=== PATIENT | male | born 1950 | race Caucasian/White ===

== ENCOUNTER 2016-12-31 14:31 | Emergency (ER) | payer MEDICARE, BC ==
[2016-12-31] MEDS ORDERED: NS 0.9% 1000 ML* 1,000 ML IV SCH (16:45)
[2016-12-31 17:24] LABS: Hematocrit 44 % (42-52); Hemoglobin 15.4 g/dl (14.0-18.0); Mean Corpuscular HGB Conc 35 g/dl (31-36); Mean Corpuscular Hemoglobin 31 pg (27-31); Mean Corpuscular Volume 90 fL (80-94); Mean Platelet Volume 9 um3 (7.4-10.4); Red Blood Count 4.93 10^6/ul (4.0-5.4); Red Cell Distribution Width 13 % (10.5-15); White Blood Count 9.3 10^3/ul (3.5-10.8)
[2016-12-31 17:39] LABS: ALT 29 U/L (7-52); AST 31 U/L (13-39); Albumin 4.4 g/dL (3.2-5.2); Alkaline Phosphatase 55 U/L (34-104); Anion Gap 7 mmol/L (2-11); BUN/Creatinine Ratio 31.1 (8-20); Blood Urea Nitrogen 28 mg/dL (6-24); CO2 Carbon Dioxide 28 mmol/L (22-32); Calcium 9.9 mg/dL (8.6-10.3); Chloride 100 mmol/L (101-111); Creatine Kinase 210 U/L (10-223); EGFR African American 108.6 (>60); EGFR Non-African American 84.4 (>60); Globulin 3.9 g/dL (2-4); Glucose 89 mg/dL (70-100); Lipase 37 U/L (11.0-82.0); Magnesium 2.2 mg/dL (1.9-2.7); Potassium 3.8 mmol/L (3.5-5.0); Sodium 135 mmol/L (133-145); Total Protein 8.3 g/dL (6.4-8.9)
[2016-12-31 18:04] VITALS: BP 140/82
[2016-12-31 18:04] LABS: Acetaminophen < 15 mcg/mL
[2016-12-31 18:17] LABS: Urine Bilirubin Negative (Negative); Urine Glucose Negative (Negative); Urine Nitrite Negative (Negative)
[2016-12-31 18:19] LABS: TSH (Thyroid Stimulating Horm) 2.53 mcIU/mL (0.34-5.60)
--- NOTE | 2016-12-31 18:31 | ED ---
Carmen Bunch Thomas, scribed for Wili Reeves MD on 12/31/16 at 1756 . Complex/Multi-Sys Presentation - HPI Summary HPI Summary: The pt is a 66 y/o M with a Hx of Parkinsons referred to the ED by his neurologist Dr. Ortiz. The patient has been experiencing hallucinations and confusion in the last few days. His neurologist refers him to the ED for evaluation by the on-call neurologist Dr. Dick. - History Of Current Complaint Chief Complaint: EDAltMentalStatus Time Seen by Provider: 12/31/16 16:45 Hx Obtained From: Patient, Family/Banquet Coordinator - is present Onset/Duration: Still Present Timing: Constant Aggravating Factor(s): None. Alleviating Factor(s): None. Associated Signs And Symptoms: Positive: Other - Hallucinations, confusion - Allergies/Home Medications Allergies/Adverse Reactions: Allergies Allergy/AdvReac Type Severity Reaction Status Date / Time Fish Allergy Allergy Itching Verified 12/04/16 14:35 PMH/Surg Hx/FS Hx/Imm Hx Previously Healthy: No Endocrine/Hematology History: Denies: Hx Diabetes Cardiovascular History: Denies: Hx Hypertension, Hx Pacemaker/ICD History: Denies: Hx Renal Disease Sensory History: Denies: Hx Hearing Aid Psychiatric History: Denies: Hx Panic Disorder - Surgical History Surgery Procedure, Year, and Place: CYST REMOVED FROM THYROID GLAND Infectious Disease History: No Infectious Disease History: Denies: Traveled Outside the [place] in Last 30 Days - Family History Known Family History: Positive: Other - When asked FHx, pt responds "nothing signifcant" - Social History Alcohol Use: None Substance Use Type: Reports: Prescribed Smoking Status (MU): Unknown if Ever Smoked Review of Systems Negative: Fever Neurological: Other - Confusion Psychological: Other - Halluicinations All Other Systems Reviewed And Are Negative: Yes Physical Exam - Summary Physical Exam Summary: General: well-appearing, no pain distress Skin: warm, color reflects adequate perfusion, dry Head: normal Eyes: EOMI, DIANDRA ENT: normal Neck: supple, nontender Respiratory: CTA, breath sounds present Cardiovascular: RRR Abdomen: soft, nontender Bowel: present Musculoskeletal: normal, strength/ROM intact Neurological: Typical parkinsonian movements. A&O x3 Psychological: affect/mood appropriate Triage Information Reviewed: Yes Vital Signs On Initial Exam: Initial Vitals Temp Pulse Resp BP Pulse Ox 97.8 F 81 18 152/86 99 12/31/16 14:34 12/31/16 14:34 12/31/16 14:34 12/31/16 14:34 12/31/16 14:34 Vital Signs Reviewed: Yes - Jarertt Coma Scale Coma Scale Total: 15 Diagnostics - Vital Signs Vital Signs Temp Pulse Resp BP Pulse Ox 12/31/16 17:00 154/87 12/31/16 16:48 84 99 12/31/16 16:47 152/84 12/31/16 16:11 97.8 F 76 18 146/88 98 12/31/16 14:34 97.8 F 81 18 152/86 99 - Laboratory Lab Results: Lab Results 12/31/16 12/31/16 12/31/16 Range/Units 17:10 17:10 17:10 WBC 9.3 (3.5-10.8) 10^3/ul RBC 4.93 (4.0-5.4) 10^6/ul Hgb 15.4 (14.0-18.0) g/dl Hct 44 (42-52) % MCV 90 (80-94) fL MCH 31 (27-31) pg MCHC 35 (31-36) g/dl RDW 13 (10.5-15) % Plt Count 244 (150-450) 10^3/ul MPV 9 (7.4-10.4) um3 Neut % (Auto) 66.0 (38-83) % Lymph % (Auto) 21.6 L (25-47) % Wirt % (Auto) 8.2 (1-9) % Eos % (Auto) 3.3 (0-6) % Baso % (Auto) 0.9 (0-2) % Absolute Neuts (auto) 6.1 (1.5-7.7) 10^3/ul Absolute Lymphs (auto) 2.0 (1.0-4.8) 10^3/ul Absolute Monos (auto) 0.8 (0-0.8) 10^3/ul Absolute Eos (auto) 0.3 (0-0.6) 10^3/ul Absolute Basos (auto) 0.1 (0-0.2) 10^3/ul Absolute Nucleated RBC 0.01 10^3/ul Nucleated RBC % 0.1 INR (Anticoag Therapy) 0.93 (0.89-1.11) APTT 28.8 (26.0-36.3) seconds Sodium 135 (133-145) mmol/L Potassium 3.8 (3.5-5.0) mmol/L Chloride 100 L (101-111) mmol/L Carbon Dioxide 28 (22-32) mmol/L Anion Gap 7 (2-11) mmol/L BUN 28 H (6-24) mg/dL Creatinine 0.90 (0.67-1.17) mg/dL Est GFR ( Amer) 108.6 (>60) Est GFR (Non-Af Amer) 84.4 (>60) BUN/Creatinine Ratio 31.1 H (8-20) Glucose 89 (70-100) mg/dL Lactic Acid (0.5-2.0) mmol/L Calcium 9.9 (8.6-10.3) mg/dL Magnesium 2.2 (1.9-2.7) mg/dL Total Bilirubin 0.70 (0.2-1.0) mg/dL AST 31 (13-39) U/L ALT 29 (7-52) U/L Alkaline Phosphatase 55 (34-104) U/L Total Creatine Kinase 210 (10-223) U/L CK-MB (CK-2) 9.6 H (0.6-6.3) ng/mL Troponin I 0.00 (<0.04) ng/mL C-Reactive Protein 1.90 (< 5.00) mg/L Total Protein 8.3 (6.4-8.9) g/dL Albumin 4.4 (3.2-5.2) g/dL Globulin 3.9 (2-4) g/dL Albumin/Globulin Ratio 1.1 (1-3) Lipase 37 (11.0-82.0) U/L TSH Pending Acetaminophen Pending 12/31/16 Range/Units 17:10 WBC (3.5-10.8) 10^3/ul RBC (4.0-5.4) 10^6/ul Hgb (14.0-18.0) g/dl Hct (42-52) % MCV (80-94) fL MCH (27-31) pg MCHC (31-36) g/dl RDW (10.5-15) % Plt Count (150-450) 10^3/ul MPV (7.4-10.4) um3 Neut % (Auto) (38-83) % Lymph % (Auto) (25-47) % Wirt % (Auto) (1-9) % Eos % (Auto) (0-6) % Baso % (Auto) (0-2) % Absolute Neuts (auto) (1.5-7.7) 10^3/ul Absolute Lymphs (auto) (1.0-4.8) 10^3/ul Absolute Monos (auto) (0-0.8) 10^3/ul Absolute Eos (auto) (0-0.6) 10^3/ul Absolute Basos (auto) (0-0.2) 10^3/ul Absolute Nucleated RBC 10^3/ul Nucleated RBC % INR (Anticoag Therapy) (0.89-1.11) APTT (26.0-36.3) seconds Sodium (133-145) mmol/L Potassium (3.5-5.0) mmol/L Chloride (101-111) mmol/L Carbon Dioxide (22-32) mmol/L Anion Gap (2-11) mmol/L BUN (6-24) mg/dL Creatinine (0.67-1.17) mg/dL Est GFR ( Amer) (>60) Est GFR (Non-Af Amer) (>60) BUN/Creatinine Ratio (8-20) Glucose (70-100) mg/dL Lactic Acid 1.0 (0.5-2.0) mmol/L Calcium (8.6-10.3) mg/dL Magnesium (1.9-2.7) mg/dL Total Bilirubin (0.2-1.0) mg/dL AST (13-39) U/L ALT (7-52) U/L Alkaline Phosphatase (34-104) U/L Total Creatine Kinase (10-223) U/L CK-MB (CK-2) (0.6-6.3) ng/mL Troponin I (<0.04) ng/mL C-Reactive Protein (< 5.00) mg/L Total Protein (6.4-8.9) g/dL Albumin (3.2-5.2) g/dL Globulin (2-4) g/dL Albumin/Globulin Ratio (1-3) Lipase (11.0-82.0) U/L TSH Acetaminophen Result Diagrams: 12/31/16 17:10 12/31/16 17:10 Lab Statement: Any lab studies that have been ordered have been reviewed, and results considered in the medical decision making process. Complex Multi-Symp Course/Dx Course Of Treatment: Medications reviewed. Allergies reviewed. BP elevated and patient advised to follow up with primary care. DR DICK SAW PATIENT IN ED. HE RECOMMENDED DECREASING THE SEROQEL TO 25MG ONLY AT NIGHT. HE SENT A SCRIPT FOR EXELON (RIVASTIGMINE) PATCH TO BE STARTED TOMORROW. F/U WITH DR ORTIZ. - Diagnoses Provider Diagnoses: Hallucinations - Physician Notifications Discussed Care Of Patient With: Rancho Dick Time Discussed With Above Provider: 17:00 Instructed by Provider To: Other - Dr. Dick, neurology, came to the ED to assess the patient. Discharge - Discharge Plan Condition: Stable Disposition: HOME Patient Education Materials: Hallucinations (ED) Referrals: Baljit Camilo MD [Primary Care Provider] - Additional Instructions: FOLLOW UP WITH NEUROLOGY. DECREASE THE SEROQUEL TO 25MG ONLY AT NIGHT. START THE EXELON (RIVASTIGMINE) PATCH TOMORROW. RETURN TO THE EMERGENCY DEPARTMENT FOR ANY WORSENING OF YOUR CONDITION OR QUESTIONS OR CONCERNS. The documentation as recorded by the Carmen gray Thomas accurately reflects the service I personally performed and the decisions made by me, Wili Reeves MD.
--- NOTE | 2017-01-01 01:32 | CONS ---
CC: Dr. Natividad Herrera * NEUROLOGY CONSULTATION: DATE OF CONSULT: 12/31/16 - EMERGENCY DEPT LOCATION: He is in emergency room bed 9. REFERRING PHYSICIAN: Dr. Wili Reeves. CHIEF COMPLAINT: Hallucinations, parkinsonism. HISTORY OF PRESENT ILLNESS: Carlos is a 66-year-old man followed by Dr. 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 For at least a year or two, he has had visual hallucinations and looking back in the records it might be longer than that. He has had some cognitive decline as early as when he retired 10 years ago, but that has progressed somewhat. Hallucinations have become particularly problematic over the last several months. He used to get them mainly at night, but over the last half a year or less he is getting them almost every day. At times, he cannot tell if they are real or not. They never speak to him. Sometimes he thinks he sees his when she is not there, but most of the time it is people or men. Sometimes he feels he needs to call the police, in that they are threatening. He has not had any injuries related to it. He has had parkinsonism which was thought to be atypical, as he has not had much tremor. It has mainly been a more of a bradykinetic rigid process. He has been on Azilect for quite some time and apparently was on Sinemet briefly years ago and did not feel that it helped. He has difficulty sleeping at night and also has dream enactment behaviors, which have been going on for at least a year or two according to his . Sometimes he will even fall out of bed. He would thrash and yell in his sleep. He was put on Requip, I believe started a couple of years ago at bedtime and that seemed to help his sleep, I am not entirely sure, but I believe his mobility might have been better as well. Because of worsening hallucinations, his Azilect was tapered off over the last two months or so. Hallucinations did not improve and so Requip was gradually tapered down until he was off of that completely within the last couple of weeks. Hallucinations continued and his mobility declined, particularly from his 's perspective. He would shuffle and freeze and he would be more bent over in his posture. His sleep deteriorated as well and he has not slept much at all at night. He has episodes where he will be unresponsive and extremely confused for hours at a time or sometimes it will seem like all day. At other times, he seems much more clear mentally and functional, usually this will last more than a day. He was started on Seroquel 12.5 mg at bedtime in the last couple of weeks. It was gradually increased to the current dose of 25 mg twice per day, but hallucinations did not seem better and his mobility seems to have further declined from his 's perspective. He had a number of laboratory studies as an outpatient just on 12/27/16, notable for a normal chemistry profile other than a BUN of 25, glucose of 129 at 2 in the afternoon. Otherwise normal chemistry profile. He had a urinalysis notable for hematuria on the same date with trace ketones and trace leukocyte esterase, but no bacteria, and trace white blood cells. He has not any dysuria, fever, or intestinal problems. There has been no history of seizures, head trauma. There is a family history of leg jerks during sleep, but no family history of parkinsonism or dementia. The exception is that both of his parents were alcoholic and became debilitated and so it is hard to tell if they that is from alcohol or there was some other process going on. PAST MEDICAL HISTORY: Otherwise notable for good health. There is no history of stroke, hypertension, heart disease, or diabetes. FAMILY HISTORY: Notable for alcoholism in his parents, but no history of dementia or parkinsonism that we can verify. REVIEW OF SYSTEMS: Notable for stable weight and no gastrointestinal complaints. He has noted double vision for about a month and that caused his to tell him that he need to stop driving and he has not driven for about 3 weeks. He describes his double vision oddly as though there are two cars where one is trying to pass the other. He has had a couple of falls and has been unsteady, but he has not injured himself. He denies nausea or abdominal pain. He denies constipation. He has not had any problems swallowing or choking spells. He has not had any fainting. He does not get lightheaded. He has urinary incontinence at times and nocturia about three times at night. PHYSICAL EXAM: General: He is a thin gentleman with dry seborrheic skin and he looks well hydrated. Vital Signs: Temperature 97.8 by temporal scan, blood pressure 150/80, heart rate is about 80 and regular, respiratory rate is 18 and oxygen saturation is 98% on room air. Lungs are clear bilaterally. Heart is in a regular rate and rhythm without murmurs. Carotid pulses are present and there are no cervical bruits. Oral mucosa is moist. Neurological exam: Pupils react equally from 3 to 2 mm. Eye movements are a little choppy, but full. There is no nystagmus and he does not experience diplopia. He has grade 3 to 4 hypomimia with symmetrical facial movement. He has good eye closure strength. Speech is quite hypophonic and at times a little bit dysarthric, but generally intelligible. Palate and tongue appear normal and tongue protrudes in the midline. He is a little hard of hearing. There is no head tremor. Motor exam reveals diffuse cogwheel rigidity which is pretty symmetric, perhaps a bit worse on the right. He has good strength in his limbs proximally and distally, but slow recruitment of motor strength. There is a very mild irregular rest tremor in the hands at times. There is no asterixis or myoclonus. Finger to nose maneuver is slow, but accurate bilaterally. Finger taps are also slow and a little bit worse on the left than the right. Rapid alternating maneuvers in the hands are very slow and he has difficulty understanding directions. Reflexes are hypoactive in the upper extremities and knees and absent at the ankles. Plantar responses are flexor bilaterally. He has marked bradykinesia. He is alert and oriented and able to provide a reasonably good history. He loses his train of thought pretty easily. Language is fluent. LABORATORY DATA: Additional laboratory data includes an MRI of the brain from 12/04/16, which I reviewed and which is interrupted as normal. I do not see any signs of progressive supranuclear palsy, lobar atrophy, or stigmata of multiple system atrophy. IMPRESSION: He probably has diffuse Lewy body disease. He had early cognitive changes and hallucinations and basically an akinetic rigid form a Parkinson disease. He has spontaneous fluctuations from day to day in his ability to function. His motor symptoms have worsened according to his with recent changes in his medications probably from decreasing and stopping his ropinirole , but possibly also from the addition of Seroquel. Treatment for hallucinations in diffuse Lewy body disease is very difficult. I would recommend starting rivastigmine patch 4.6 mg per day and titrating upward according to the recommended guidelines. Recommended cutting Seroquel back to 25 mg at bedtime, as I am afraid if we try to increase it, his motor symptoms will worsen and his fall risk will increase. He might benefit from Nuplazid if hallucination did not improve with addition of rivastigmine. If hallucinations do improve and his motor symptoms remain problematic, then it might be worth rechallenging with carbidopa/levodopa as it has been years since he has been on it. I will discuss my impression with Dr. Herrera. I have also discussed my impression with the patient, his , and Dr. Reeves. [id number]/[facility] #: [id number] MTDD
== END 2016-12-31 18:54 | disposition home or self-care (01) ==
LOC: ED 14:31
DX: R44.3 Hallucinations, unspecified (principal); R41.0 Disorientation, unspecified
CPT/HCPCS: 36415; 80053; 80329; 81003; 82140; 82550; 82553; 83605; 83690; 83735; 84443; 84484; 85025; 85610; 85730; 86140; 96360; 99282; G0480

== ENCOUNTER 2019-02-01 12:38 | Observation (INO) | payer MEDICARE, BC ==
[2019-02-01] MEDS ORDERED: NS 0.9% 1000 ML** 2,000 ML IV ONE (12:57)
--- NOTE | 2019-02-01 13:06 | ED ---
Complex/Multi-Sys Presentation - HPI Summary HPI Summary: Patient is a 68 y/o M presenting to the ED via EMS for a chief complaint of hypothermia. Patient is present with his . Patient was reported missing by the patient's the morning of 02/01/19 after the patient wandered out of the house on his own. Patient's states that the patient was found near a shed and walked out of the house while his was asleep. Patient [place] [address] and does not have any alarms on the doors of the house. Patient's denies a similar episode occurring in the past. Patient was found by EMS in a field about 1/4 mile from his house wearing pajama pants and Crocs with socks. Per EMS, patient was not alert, had abrasions on the bilateral UE and bilateral LE, and frostbite in the bilateral UE, bilateral LE, and face. His tympanic core temperature was 89.9 F and his rectal temperature taken 20 minutes after the tympanic core temperature was 92 F. Patient's initial oxygen saturation was 89% and after being given 2L of oxygen, oxygen saturation was 93% . Patient reports low back pain, but denies headache, shortness of breath, or chest pain. PMHx is significant for dementia and Parkinson's disease for which he takes 2 medications. Per patient's , patient has a history of hallucinations and confusion. Allergies noted. HPI LIMITED DUE TO LEVEL 5 CAVEAT - DEMENTIA - History Of Current Complaint Hx Obtained From: Patient, Family/Check Cashier - , EMS Hx From Patient Unobtainable Due To: Dementia Onset/Duration: Sudden Onset, Still Present Timing: Constant Severity Currently: Moderate Severity Initially: Moderate Associated Signs And Symptoms: Positive: Back Pain - Low - Allergies/Home Medications Allergies/Adverse Reactions: Allergies Allergy/AdvReac Type Severity Reaction Status Date / Time Fish Containing Products Allergy Itching Verified 05/12/18 12:37 Home Medications: Home Medications Pimavanserin Tartrate [Nuplazid] 1 tab PO DAILY 02/01/19 [History Confirmed 03/22] PMH/Surg Hx/FS Hx/Imm Hx Previously Healthy: No - LIMITED DUE TO LEVEL 5 CAVEAT - DEMENTIA Endocrine/Hematology History: Denies: Hx Diabetes Cardiovascular History: Denies: Hx Hypertension, Hx Pacemaker/ICD History: Denies: Hx Renal Disease Sensory History: Denies: Hx Hearing Aid Psychiatric History: Denies: Hx Panic Disorder - Surgical History Surgery Procedure, Year, and Place: CYST REMOVED FROM THYROID GLAND Infectious Disease History: Denies: Traveled Outside the [place] in Last 30 Days - Family History Known Family History: Positive: Other - When asked FHx, pt responds "nothing signifcant" - Social History Alcohol Use: None Substance Use Type: Reports: Prescribed Smoking Status (MU): Unknown if Ever Smoked Review of Systems - ROS Summary Review of Systems Summary: ROS LIMITED DUE TO LEVEL 5 CAVEAT - DEMENTIA. Positive: Other - Positive hypothermia Negative: Chest Pain Negative: Shortness Of Breath Positive: Myalgia - Low back pain Positive: Other - Positive abrasions on the bilateral UE and LE, frostbite to the bilateral UE, LE, and face Negative: Headache All Other Systems Reviewed And Are Negative: No Physical Exam - Summary Physical Exam Summary: PHYSICAL EXAM LIMITED DUE TO LEVEL 5 CAVEAT - DEMENTIA. Constitutional: Well-developed, Well-nourished, Alert.(-) Distressed Skin: Warm, Dry HENT: Normocephalic; Atraumatic Eyes: Conjunctiva normal Neck: Musculoskeletal ROM normal neck. (-) JVD, (-) Stridor, (-) Tracheal deviation Cardio: Rhythm regular, rate normal, Heart sounds normal; Intact distal pulses; The pedal pulses are 2+ and symmetric. Radial pulses are 2+ and symmetric. (-) Murmur Pulmonary/Chest wall: Effort normal. (-) Respiratory distress, (-) Wheezes, (-) Rales Abd: Soft, (-) tenderness, (-) Distension, (-) Guarding, (-) Rebound Musculoskeletal: (-) Edema. Numerous abrasions on the bilateral hands, feet, and ankles. Feet and ankles are cold to the touch, hyperemic, and erythematous. Capillary refill is less than 2 seconds. Lymph: (-) Cervical adenopathy Neuro: Alert, Oriented x3 Psych: Mood and affect Normal Triage Information Reviewed: Yes Vital Signs Reviewed: Yes Completion Of Physical Exam Limited Due To: Dementia, Level 5 - Lowman Coma Scale Best Eye Response: 3 - To Speech Best Motor Response: 6 - Obeys Commands Best Verbal Response: 5 - Oriented Coma Scale Total: 14 Procedures - Sedation Patient Received Moderate/Deep Sedation with Procedure: No Diagnostics - Laboratory Result Diagrams: 02/01/19 12:50 02/01/19 12:50 Lab Statement: Any lab studies that have been ordered have been reviewed, and results considered in the medical decision making process. - Radiology Lumbosacral X-ray Summary of Radiographic Findings: Lumbosacral X-ray not completed by time of admission. Reviewed by Dr. Wiley. Chest X-ray Radiology Interpretation Completed By: Radiologist Summary of Radiographic Findings: Chest X-ray IMPRESSION: 1. Hypoinflated lungs with no focal airspace opacification. 2. Prominence of the mediastinal structures may be related to technique. Reviewed by Dr. Wiley. - CT Brain CT CT Interpretation Completed By: Radiologist Summary of CT Findings: Brain CT IMPRESSION: 1. No acute intracranial abnormality by CT. Reviewed by Dr. Wiley. Complex Multi-Symp Course/Dx Course Of Treatment: LIMITED DUE TO LEVEL 5 CAVEAT - DEMENTIA. Patient is a 68 y/o M presenting to the ED via EMS for a chief complaint of hypothermia. Patient is present with his . Patient was reported missing by the patient's the morning of 02/01/19 after the patient wandered out of the house on his own. Patient's states that the patient was found near a shed and walked out of the house while his was asleep. Patient [place] [address] and does not have any alarms on the doors of the house. Patient's denies a similar episode occurring in the past. Patient was found by EMS in a field about 1/4 mile from his house wearing pajama pants and Crocs with socks. Per EMS , patient was not alert, had abrasions on the bilateral UE and bilateral LE, and frostbite in the bilateral UE, bilateral LE, and face. His tympanic core temperature was 89.9 F and his rectal temperature taken 20 minutes after the tympanic core temperature was 92 F. Patient's initial oxygen saturation was 89% and after being given 2L of oxygen, oxygen saturation was 93%. Patient reports low back pain, but denies headache, shortness of breath, or chest pain. PMHx is significant for dementia and Parkinson's disease for which he takes 2 medications. Per patient's , patient has a history of hallucinations and confusion. Allergies noted. On exam, numerous abrasions on the bilateral hands , feet, and ankles. Feet and ankles are cold to the touch, hyperemic, and erythematous. Capillary refill is less than 2 seconds. In the ED course, patient was given fluids. Laboratory abnormal findings: WBC 15.6, absolute neuts 14.1, absolute lymphs 0.6., anion gap 12, BUN 35, BUN/Creatinine ratio 37.2, glucose 116, lactic acid 3.6, total creatine kinase 249, urine blood 1+, urine ascorbic acid present. Brain CT IMPRESSION: 1. No acute intracranial abnormality by CT. Chest X-ray IMPRESSION: 1. Hypoinflated lungs with no focal airspace opacification. 2. Prominence of the mediastinal structures may be related to technique. Lumbosacral X-ray not completed by time of admission. At 14:08, Dr. Sosa agrees to admit the patient to [facility] with a diagnosis of moderate hypothermia. Patient will be admitted to [facility] with a diagnosis of moderate hypothermia. - Diagnoses Provider Diagnoses: Hypothermia - Physician Notifications Discussed Care Of Patient With: Hermann - At 14:08, Dr. Sosa agrees to admit the patient to [facility] with a diagnosis of moderate hypothermia. Time Discussed With Above Provider: 14:08 Instructed by Provider To: Admit As Observation Discharge ED - Sign-Out/Discharge Documenting (check all that apply): Patient Departure - Admit All imaging exams completed and their final reports reviewed: No - Discharge Plan Condition: Stable Disposition: ADMITTED TO [facility] - Attestation Statements Document Initiated by Scribe: Yes Documenting Scribe: Alexus Mercado Provider For Whom Scribe is Documenting (Include Credential): Bucky Wiley MD Scribe Attestation: Alexus Bunch, scribed for Bucky Wiley MD on 02/01/19 at 9006. Status of Scribe Document: Ready
[2019-02-01 13:10] LABS: ABS Basophils 0.1 10^3/ul (0-0.2); ABS Lymphocytes 0.6 10^3/ul (1.0-4.8); ABS Monocytes 0.8 10^3/ul (0-0.8); ABS Neutrophils 14.1 10^3/ul (1.5-7.7); Eosinophil % 0.2 %; Hematocrit 42 % (42-52); Hemoglobin 14.2 g/dL (14.0-18.0); Lymphocyte % 4.1 %; Mean Corpuscular HGB Conc 34 g/dL (31-36); Mean Corpuscular Hemoglobin 31 pg (27-31); Mean Corpuscular Volume 91 fL (80-94); Mean Platelet Volume 8.5 fL (7.4-10.4); Nucleated Red Blood Cells % 0.1; Platelet Count 231 10^3/uL (150-450); Red Blood Count 4.66 10^6 /uL (4.18-5.48); Red Cell Distribution Width 14 % (10-15); White Blood Count 15.6 10^3/uL (3.5-10.8)
[2019-02-01 13:12] LABS: Urine Appearance Cloudy; Urine Bilirubin Negative (Negative); Urine Blood 1+ (Negative); Urine Color Yellow; Urine Glucose Negative (Negative); Urine Ketones Negative (Negative); Urine Nitrite Negative (Negative); Urine Protein Negative (Negative); Urine Specific Gravity 1.025 (1.010-1.030); Urine Urobilinogen Negative (Negative)
[2019-02-01 13:14] LABS: Activated Partial Thrombo Time 29.1 seconds (26.0-38.0); INR 1.01 (0.82-1.09)
[2019-02-01 13:16] LABS: Urine Bacteria Absent (Absent); Urine Red Blood Cell Absent (Absent); Urine White Blood Cell Trace(0-5/hpf) (Absent)
[2019-02-01 13:18] LABS: Albumin 4.3 g/dL (3.2-5.2); Albumin/Globulin Ratio 1.1 (1-3); BUN/Creatinine Ratio 37.2 (8-20); Calcium 9.6 mg/dL (8.6-10.3); EGFR African American 96.6 (>60); EGFR Non-African American 79.8 (>60); Globulin 3.8 g/dL (2-4); Total Bilirubin 0.4 mg/dL (0.2-1.0); Total Protein 8.1 g/dL (6.4-8.9)
[2019-02-01 13:20] LABS: Troponin I 0.02 ng/mL (<0.03)
[2019-02-01] MEDS ORDERED: Ondansetron INJ* 2 MG/ML VIAL IV PRN (15:03)
[2019-02-01] MEDS ORDERED: Acetaminophen TAB* 325 MG PO PRN (15:03)
[2019-02-01] MEDS ORDERED: NS 0.9% 1000 ML** 1,000 ML IV SCH (15:15)
[2019-02-01] MEDS: Enoxaparin(*) 40 MG/0.4 ML SYR SUBCUT SCH (17:26)
[2019-02-01] MEDS: CMC:Rivastigmine PATCH 9.5 MG(NF) PATCH TRANSDERM SCH (17:30)
--- NOTE | 2019-02-01 17:41 | HP ---
CC: Dr. Dora Nye; Dr. Brent Lorenz * ADMISSION HISTORY AND PHYSICAL: DATE OF ADMISSION: 02/01/19 PRIMARY CARE PROVIDER: Dr. Dora Nye. MY ATTENDING WHILE IN THE HOSPITAL: Dr. Marina Rodrigues.* (DICTATED BY ROMEL MONTES) OUTPATIENT NEUROLOGIST: Dr. Brent Lorenz. CHIEF COMPLAINT: Cold exposure. HISTORY OF PRESENT ILLNESS: Mr. Roman is a 68-year-old male with past medical history significant for Parkinson disease complicated by dementia and severe visual hallucinations, who presents to the emergency department after being in his normal state of health up until this morning when he woke up prior to his and left the house before anabel for reasons he cannot quite understand and walked for approximately a quarter of a mile wearing pajama pants and open-toed footwear sustaining several scrapes along the way. The patient did not lose consciousness. The patient did not fall to his knowledge. The patient denied any recent changes in his meds except for the addition of Nuplazid approximately 1 month ago. The patient's thinks that this may have worsened his confusion and has not significantly changed his visual hallucinations; however, the patient does think that he feels sharper while on the Nuplazid. The patient had a followup tomorrow with his neurologist to discuss the continuation of this medication. The patient briefly took temazepam for sleep, but has not been taking this recently. The patient prior to admission denies fevers, chills, nausea, vomiting, abdominal pain, or diarrhea. The patient also denies dysuria, urinary frequency, passing out, palpitations, chest pain, or shortness of breath. The patient did receive his flu shot and his pneumonia vaccination. The patient in the emergency department notes some pain to his upper extremities, but no burning pain in his distal extremities or numbness or tingling. The patient denies any chest pain, shortness of breath, or any other pain. The patient was found in the field to have a core temperature of 92 degrees Fahrenheit and his oxygen saturation was initially 89%, which improved on 2 L of oxygen. In the emergency department, the patient was warmed. The patient had adequate mental status. The patient was found to have an elevated lactic acid, a slightly elevated CK, and elevated white blood cell count with neutrophilia, otherwise benign lab work and the patient was recommended to be admitted to the hospital due to these findings. PAST MEDICAL HISTORY: Parkinson disease, dementia, restless legs syndrome, depression, visual hallucinations. PAST SURGICAL HISTORY: Biker nodule removal. MEDICATIONS: 1. Ropinirole 1 mg p.o. t.i.d. 2. Rasagiline 1 mg p.o. daily. 3. Rivastigmine 9.5 mg 1 patch transdermal q.24 hours. 4. Vitamin B12 1000 mcg p.o. daily. 5. Multivitamin 1 tab p.o. daily. 6. Glycopyrrolate 2 mg p.o. t.i.d. 7. Pimavanserin (Nuplazid) 34 mg 1 tab p.o. daily. ALLERGIES: FISH. FAMILY HISTORY: The patient's father had alcohol abuse and of a suicide. The patient's mother of alcohol related complications. The patient has 2 healthy siblings. SOCIAL HISTORY: The patient has never smoked tobacco. The patient has never drank alcohol and the patient used marijuana in college. 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 [place] who is his primary caregiver and he has 1 adult daughter. REVIEW OF SYSTEMS: A 10-point review of systems was reviewed and is negative except as above in the HPI. PHYSICAL EXAMINATION GENERAL: The patient is a 68-year-old male, who appears stated age and sitting comfortably in bed, in no acute distress. VITAL SIGNS: Temperature 96.1 via [place] probe, pulse rate 88, respiratory rate 15, oxygen saturation 95% on FiO2 of 21%, blood pressure 114/70. HEENT: Head: Normocephalic, atraumatic. Sclerae anicteric. No conjunctival injection. Nasal mucosa moist. Oral mucosa moist. No pharyngeal erythema, discharge, or exudate. NECK: Supple, nontender. No lymphadenopathy. No carotid bruits auscultated. No JVD. RESPIRATORY: Clear to auscultation bilaterally. No wheezes, rales, or rhonchi. Good air exchange bilaterally. CARDIAC: Regular rate and rhythm. No clicks, murmurs, gallops, or rubs. Pulses are 2+ in the bilateral dorsalis pedis, posterior tibialis, and radial areas. ABDOMEN: Soft, nontender, nondistended. Bowel sounds present and normoactive in all 4 quadrants. No hepatosplenomegaly. No abdominal bruits auscultated. No hepatojugular reflux. GENITOURINARY: No suprapubic or CVA tenderness. NEURO: Cranial nerves II through XII intact. Alert and oriented to time, place , and self. Bradykinesia. Shivering. SKIN: Clean, dry, and intact. No rash. Distal hands and feet are red, warm to the touch, slightly edematous. No areas of blistering, pallor, or cyanosis. DIAGNOSTIC STUDIES/LAB DATA: White blood cell count 15.6, hemoglobin 14.2, platelet count 231. INR 1.01, APTT 29.1. Sodium 139, potassium 4.0, chloride 104, carbon dioxide 23, anion gap 12, BUN 35, creatinine 0.94, glucose 116, lactic acid 3.6, calcium 9.6. Bilirubin 0.4, AST 31, ALT 40, alkaline phosphatase 62. CK 249 and troponin I 0.02. Protein 8.1, albumin 4.2, globulin 3.8. Urine: Yellow, cloudy, 1+ blood, positive ascorbic acid, otherwise unremarkable. Studies: Brain CT read as no acute intracranial abnormality. Chest x-ray read as hypoinflation, prominent mediastinal markings. ASSESSMENT AND PLAN: Impression: Mr. Roman is a 68-year-old male with past medical history significant for Parkinson disease with dementia and visual hallucinations, who was found to be wandering out in the cold this morning for an undetermined period of time up to 6 hours, who presents to the emergency department via EMS for hypothermia, who is being actively rewarmed in the emergency department successfully and will be admitted to the hospital for observation and supportive care. 1. Wandering, hypothermia. The patient's hypothermia is improving. His current core temperature via Madrid probe is 96.1 degrees Fahrenheit up from a lower recorded in this institution of 91.4 and a field record via temporal scanner of 89. The patient has mild frostbite on his hands and feet and has been actively rewarmed. There is no indication for warm baths or any sort of dressing. Antibiotic prophylaxis and tetanus which are recommended for frostbite are not indicated given the mild nature of his disease. The patient will continued to be rewarmed with Vapotherm, humidified oxygen at 21% FiO2, as well as warmed IV fluids at 100 mL an hour. The patient's lactic acid will be repeated in 4 hours. The initial lactic acid almost definitely does not represent current infection. Both that and the white blood cell count are likely related to cold exposure and not to infection; however, blood and urine cultures have been drawn and are pending. The patient will not be started on antibiotics at this time. If the patient develops other signs of infection, this may be changed in the future. The cause of the patient's wandering is unclear, though it is likely just a symptom of his ongoing decline related to dementia and Parkinson disease. 2. Parkinson disease. Continue the patient's home medications except for his Nuplazid, which is not available, and possibly this is worsening his confusion. The patient will have physical therapy while in the hospital to avoid deconditioning. The patient is usually very active. 3. Restless legs syndrome. Continue his ropinirole for this and Parkinson disease. 4. Dementia. Supportive care. The patient and his will discuss strategies at home for preventing wandering. 5. Hallucinations. Hold Nuplazid at this time as it does not appear to be working per the patient and family's report. 6. DVT prophylaxis: Lovenox subcu. 7. FEN: The patient will have a regular unrestricted diet and fluids as above. 8. Disposition: The patient is admitted for observation to the ICU. TIME SPENT: Approximately 60 minutes was spent on the admission of this patient , 30 of which was spent [id number] with the patient obtaining history and physical and discussing treatment plan. This plan was discussed with my attending Dr. Marina Rodrigues, and she is in agreement. ROMEL MONTES [id number]/[facility] #: [id number] PINA
[2019-02-01] MEDS: GLYCOPYRROLATE 1 MG PO SCH (20:19)
[2019-02-01] MEDS: rOPINIRole TAB* 1 MG PO SCH (20:22)
[2019-02-01] MEDS: NS 0.9% 1000 ML** 1,000 ML IV SCH (20:29)
[2019-02-02 06:57] LABS: ABS Eosinophils 0.1 10^3/ul (0-0.6); ABS Lymphocytes 1.4 10^3/ul (1.0-4.8); ABS Monocytes 0.9 10^3/ul (0-0.8); ABS Neutrophils 8.2 10^3/ul (1.5-7.7); Eosinophil % 0.6 %; Hematocrit 36 % (42-52); Hemoglobin 12.3 g/dL (14.0-18.0); Lymphocyte % 13.5 %; Mean Corpuscular HGB Conc 34 g/dL (31-36); Mean Corpuscular Hemoglobin 31 pg (27-31); Mean Corpuscular Volume 90 fL (80-94); Mean Platelet Volume 8.6 fL (7.4-10.4); Platelet Count 198 10^3/uL (150-450); Red Blood Count 3.99 10^6 /uL (4.18-5.48); Red Cell Distribution Width 14 % (10-15); White Blood Count 10.6 10^3/uL (3.5-10.8)
[2019-02-02] MEDS: NS 0.9% 1000 ML** 1,000 ML IV SCH (07:02)
[2019-02-02 07:10] LABS: BUN/Creatinine Ratio 26.2 (8-20); Calcium 8.5 mg/dL (8.6-10.3); EGFR Non-African American 90.9 (>60); Potassium 3.8 mmol/L (3.5-5.0)
[2019-02-02] MEDS: rOPINIRole TAB* 1 MG PO SCH ×2 (07:14→12:48)
[2019-02-02] MEDS: GLYCOPYRROLATE 1 MG PO SCH ×2 (07:18→12:03)
[2019-02-02] MEDS ORDERED: CMC:Rasagiline (NF) 1 MG TAB PO SCH (09:00)
[2019-02-02] MEDS ORDERED: CYANOCOBALAMIN 500 MCG PO SCH (09:00)
[2019-02-02] MEDS ORDERED: Multivitamins/Minerals TAB PO SCH (09:00)
[2019-02-02 11:52] VITALS: BP 117/62
[2019-02-02] MEDS: CMC:Rivastigmine PATCH 9.5 MG(NF) PATCH TRANSDERM SCH (15:27)
[2019-02-02] MEDS: Enoxaparin(*) 40 MG/0.4 ML SYR SUBCUT SCH (15:27)
--- NOTE | 2019-02-03 22:05 | DS ---
CC: Dr. Brent Lorenz; Dr. Dora Nye. * DISCHARGE SUMMARY: DATE OF ADMISSION: 02/01/19 DATE OF DISCHARGE: 02/02/19 PRIMARY CARE PROVIDER: Dr. Dora Nye. MY ATTENDING WHILE IN THE HOSPITAL: Dr. Prema Lopez.* (DICTATED BY ROMEL MONTES) The patient is an outpatient. NEUROLOGIST: Dr. Brent Lorenz. PRIMARY DISCHARGE DIAGNOSIS: Hypothermia due to exposure, mild alfaro bite of the bilateral upper and lower extremities. SECONDARY DISCHARGE DIAGNOSES: 1. Parkinson's disease. 2. Dementia. 3. Restless leg syndrome. 4. Depression. 5. The patient with hallucinations. STUDIES DONE WHILE IN THE HOSPITAL: Brain CT from 02/01/19 read as no acute intracranial abnormality. Lumbar spine x-ray read as [id number] degenerative disk disease. Chest x-ray read as hypoinflated lungs with no focal airspace opacification, prominent mediastinal structures maybe related to technique. MEDICATIONS AT DISCHARGE: 1. Ropinirole 1 mg p.o. t.i.d. 2. Rasagiline 1 mg p.o. daily. 3. Rivastigmine 9.5 mg patch 1 patch transdermal q.24 hours. 4. Cyanocobalamin 100 mcg p.o. daily. 5. Multivitamin 1 tab p.o. daily. 6. Glycopyrrolate 2 mg p.o. t.i.d. 7. Pimavanserin 34 mg daily. 8. Tylenol 650 mg p.o. q.6 hours as needed. New medications at discharge: Tylenol. HOSPITAL COURSE: This is a brief summary of the patient's presentation. For more details, please see the history and physical from this author on 02/01/19. In brief, the patient is a 68-year-old male with a past medical history significant for the above who had been in his normal state of health, when on the morning of his presentation for reasons that are unbeknownst to him and his , he decided to walk outside in the cold with only crocs on. The patient states he remembers all of this, but is not able to recall his motives. The patient has not had wandering to be a problem before with his dementia. The patient was outside for a minimum of 4 hours and up to approximately 9 hours. The patient was found by police. The patient's initial core temperature that was measured was 92 degrees Fahrenheit. The patient was initially slightly hypoxic at 89%. The patient was warmed in the field while being brought into the hospital. Upon presentation to the hospital, his temperature was 91.4 via [place] temperature probe. The patient had some cyanosis and pallor of his lower extremities which corrected quickly with warming. The patient has no blistering. The patient had minimal pain. The patient had no numbness or tingling in his bilateral extremities. The patient had elevated white blood cell count, but had negative blood cultures and urine cultures and this resolved on day 2 of hospitalization. The patient was admitted to the hospital for active warming. He was given humidifier oxygen, warmth, fluids. The patient had a slightly elevated creatinine kinase on admission that had a highest reading at 22, 72, and then declined quickly per expectation with this type of injury. The patient had no elevation in his creatinine. The patient performed well with physical therapy. On the second day of his admission, the patient had minimal pain, required no opiate pain medication. The patient had no signs of vascular compromise in his lower extremities nor excessive tissue damage, nor did he have excessive pain. The need for avoiding the cold was discussed with the patient's and she understood and stated she would work actively towards strategies to mitigate his wandering. The patient was stable and actively discharged on 02/02/19. PHYSICAL EXAMINATION ON THE DATE OF DISCHARGE: General: The patient is a 68- year-old male with mask-like facies, sitting in the bed, in no acute distress. Vital Signs: At the time of discharge, temperature 98.0, pulse of 78, respiratory rate 20, oxygen 96% on room air, blood pressure 117/62. HEENT: Head normocephalic and atraumatic. Sclerae anicteric. No conjunctival injection. Nasal mucosa moist. Oral mucosa moist. No oropharyngeal erythema, discharge, or exudate. Neck: Supple and nontender. No lymphadenopathy. No carotid bruits auscultated. No JVD. Cardiac: Regular rate and rhythm. No clicks, murmurs, gallops, or rubs. Pulses are 2+ in dorsalis pedis, posterior tibialis, and radial areas. Respiratory: Clear to auscultation bilaterally. No wheezes, rales, or rhonchi. Good air exchange bilaterally. Abdomen: Soft, nontender, and nondistended. Bowel sounds present and normoactive in all 4 quadrants. No hepatosplenomegaly. No abdominal bruits auscultated. No hepatojugular reflux. Genitourinary: No suprapubic or CVA tenderness. Skin: Clean, dry, and intact. No rash. Slight sclerosis of the skin on the left great toe with no blistering, pallor, or cyanosis. Neuro: Cranial nerves II through XII intact. Tremor, mask-like facies, shuffling gait with no other focal deficits. Alert and oriented x3. Psychiatric: Pleasant and cooperative. DISCHARGE PLAN BY PROBLEM: 1. Cold exposure, mild alfaro bite. The patient has been actively warm. The patient has no extensive tissue damage from his alfaro bite. The patient should actively avoid cold and be protective when going outside. The patient should undertake strategies taken to mitigate wandering. The patient should continue follow up with his neurologist to discuss the adequacy of his parkinsonian medications. Since he has been started on Nuplazid his feels that he might be less oriented though he does feel like he is better on the Nuplazid. Neither of them note a change in his visual hallucinations with this medication. 2. Parkinson's disease. The patient should continue to follow up with his neurologist. The patient was scheduled on the day of discharge with his neurologist, a follow up appointment should be scheduled in the near future and he should discuss the adequacy of his medications, particularly his Nuplazid. 3. Restless leg syndrome. Continue the patient's ropinirole. CONDITION: Stable. DISPOSITION: Home. DIET: Regular. TIME SPENT: Approximately 60 minutes was spent on the discharge of this patient , 30 of which was spent [id number] with the patient obtaining history and physical and discussing treatment plan. ROMEL MONTES [id number]/[facility] #: [id number] MTDIain
== END 2019-02-02 15:50 | disposition home or self-care (01) ==
LOC: ED 12:38 → ICU 15:03 → MEDTELE 21:35
PROVIDERS: ADMIT Internal Medicine; ATTEND Internal Medicine
DX: T68.XXXA Hypothermia, initial encounter (principal); T33.99XA Superficial frostbite of other sites, initial encounter; T33 Superficial frostbite; X31.XXXA Exposure to excessive natural cold, initial encounter; Y92.9 Unspecified place or not applicable; G20 Parkinson's disease; F02.80 Dementia in other diseases classified elsewhere, unspecified severity, without behavioral disturbance, psychotic disturbance, mood disturbance, and anxiety; G25.81 Restless legs syndrome; F32.9 Major depressive disorder, single episode, unspecified; R44.3 Hallucinations, unspecified; Z79.899 Other long term (current) drug therapy
CPT/HCPCS: 36415; 70450; 71045; 72110; 80048; 80053; 81003; 81015; 82550; 83605; 83735; 84484; 85025; 85610; 85730; 86850; 86900; 86901; 87040; 87086; 87641; 96360; 96361; 96372; 99285; A9270-GY; G0378; G8978-GP-CJ; G8979-GP-CI; J1650

== ENCOUNTER 2022-03-09 05:54 | Inpatient (IN) ==
[2022-03-09] MEDS ORDERED: Pantoprazole VIAL 40 MG VIAL IV ONE (06:42)
[2022-03-09 07:14] LABS: ABS Lymphocytes 1.3 10^3/ul (1.0-4.8); ABS Monocytes 1.1 10^3/ul (0-0.8); ABS Neutrophils 14.4 10^3/ul (1.5-7.7); Eosinophil % 0.2 %; Hematocrit 38 % (42-52); Hemoglobin 12.6 g/dL (14.0-18.0); Lymphocyte % 7.6 %; Mean Corpuscular HGB Conc 33 g/dL (31-36); Mean Corpuscular Hemoglobin 29 pg (27-31); Mean Corpuscular Volume 89 fL (80-94); Mean Platelet Volume 7.7 fL (7.4-10.4); Nucleated Red Blood Cells % 0.1; Platelet Count 331 10^3/uL (150-450); Red Cell Distribution Width 13 % (10-15); White Blood Count 16.8 10^3/uL (3.5-10.8)
[2022-03-09 07:23] LABS: Activated Partial Thrombo Time 27.7 seconds (26.0-38.0); INR 1.11 (0.88-1.18)
[2022-03-09 07:44] LABS: Albumin 3.6 g/dL (3.2-5.2); CO2 Carbon Dioxide 28 mmol/L (22-32); Calcium 8.7 mg/dL (8.6-10.3); Chloride 100 mmol/L (101-111); Sodium 135 mmol/L (135-145)
[2022-03-09 07:50] LABS: ALT 16 U/L (7-52); Albumin/Globulin Ratio 1.2 (1-3); Alkaline Phosphatase 67 U/L (35-149); Blood Urea Nitrogen 20 mg/dL (6-24); Globulin 3.1 g/dL (2-4); Glucose 85 mg/dL (70-100); Total Protein 6.7 g/dL (6.4-8.9); eGFR CKD-EPI 96.9 (>60)
[2022-03-09 07:55] LABS: Anion Gap 7 mmol/L (2-11)
[2022-03-09] MEDS ORDERED: Iohexol 350 (CONTRAST) 500 ML MDV IV ONE (07:56)
[2022-03-09] MEDS ORDERED: Pantoprazole 80 mg in NS BAG 80 MG/250 ML BAG IV ONE (09:26)
[2022-03-09] MEDS ORDERED: Lactated Ringers 1000 ml BAG 1,000 ML IV ONE ×2 (10:02→12:30)
[2022-03-09 11:03] LABS: ABS Basophils 0.1 10^3/ul (0-0.2); ABS Lymphocytes 1.9 10^3/ul (1.0-4.8); Eosinophil % 0.1 %; Hematocrit 35 % (42-52); Hemoglobin 11.5 g/dL (14.0-18.0); Lymphocyte % 10.6 %; Mean Corpuscular HGB Conc 33 g/dL (31-36); Mean Corpuscular Hemoglobin 29 pg (27-31); Mean Corpuscular Volume 88 fL (80-94); Mean Platelet Volume 7.6 fL (7.4-10.4); Platelet Count 334 10^3/uL (150-450); Red Blood Count 4.02 10^6 /uL (4.18-5.48); Red Cell Distribution Width 13 % (10-15)
[2022-03-09] MEDS ORDERED: fentaNYL 100 mcg/2 ml 50 MCG/ML VIAL ONE (11:53)
[2022-03-09] MEDS ORDERED: Midazolam 10 mg/10 ml VIAL 1 mg/ml 10 ml VIAL (10 mg) ONE (11:53)
[2022-03-09 12:01] LABS: Potassium Redraw 4.2 mmol/L (3.5-5.0)
[2022-03-09] MEDS ORDERED: Piperacillin/Tazobac ADVAN 3.375 GM in NS 0.9% 100 ml BAG 100 ML IV ONE (13:28)
[2022-03-09] MEDS ORDERED: Zosyn per Pharmacy NOTE FOLLOW UP SCH (14:00)
[2022-03-09 18:37] LABS: Hematocrit 39 % (42-52); Hemoglobin 12.6 g/dL (14.0-18.0)
[2022-03-09] MEDS: ZOSYN 3.375 GM Q8H per EXTENDED INFUSION IV SCH (20:49)
[2022-03-09] MEDS: Pantoprazole VIAL 40 MG VIAL IV SCH (20:50)
[2022-03-10] MEDS: ZOSYN 3.375 GM Q8H per EXTENDED INFUSION IV SCH ×3 (04:30→21:33)
[2022-03-10 05:57] LABS: Hematocrit 37 % (42-52); Hemoglobin 12.1 g/dL (14.0-18.0)
[2022-03-10 06:02] LABS: Albumin 3.2 g/dL (3.2-5.2); CO2 Carbon Dioxide 21 mmol/L (22-32); Calcium 8.6 mg/dL (8.6-10.3); Chloride 109 mmol/L (101-111); Sodium 141 mmol/L (135-145)
[2022-03-10 06:04] LABS: Anion Gap 11 mmol/L (2-11)
[2022-03-10 06:07] LABS: ALT 13 U/L (7-52); Albumin/Globulin Ratio 1.1 (1-3); Alkaline Phosphatase 60 U/L (35-149); Blood Urea Nitrogen 14 mg/dL (6-24); Globulin 2.9 g/dL (2-4); Glucose 75 mg/dL (70-100); Total Protein 6.1 g/dL (6.4-8.9)
[2022-03-10] MEDS: Pantoprazole VIAL 40 MG VIAL IV SCH ×2 (09:09→21:25)
[2022-03-10] MEDS: NS 0.9% 1000 ml BAG 1,000 ML IV SCH ×2 (09:10→19:32)
[2022-03-10 09:46] LABS: Potassium Redraw 3.9 mmol/L (3.5-5.0)
[2022-03-10] MEDS: CMCS: Rasagiline 1 mg TAB (NF) PO SCH (15:15)
[2022-03-11] MEDS ORDERED: Sodium Chloride(INHALANT) 7% 4 ML NEB.SOLN INH ONE (04:53)
[2022-03-11] MEDS: ZOSYN 3.375 GM Q8H per EXTENDED INFUSION IV SCH ×3 (05:44→20:33)
[2022-03-11] MEDS: NS 0.9% 1000 ml BAG 1,000 ML IV SCH ×2 (05:44→15:56)
[2022-03-11 08:15] LABS: ABS Basophils 0.1 10^3/ul (0-0.2); ABS Monocytes 0.7 10^3/ul (0-0.8); Eosinophil % 0.2 %; Hematocrit 35 % (42-52); Hemoglobin 11.7 g/dL (14.0-18.0); Mean Corpuscular HGB Conc 33 g/dL (31-36); Mean Corpuscular Hemoglobin 29 pg (27-31); Mean Corpuscular Volume 88 fL (80-94); Mean Platelet Volume 7.8 fL (7.4-10.4); Platelet Count 285 10^3/uL (150-450); Red Cell Distribution Width 14 % (10-15); White Blood Count 12.9 10^3/uL (3.5-10.8)
[2022-03-11 09:05] LABS: Calcium 8.3 mg/dL (8.6-10.3); Potassium 4.2 mmol/L (3.5-5.0); eGFR CKD-EPI 94.6 (>60)
[2022-03-11] MEDS: Pantoprazole VIAL 40 MG VIAL IV SCH ×2 (09:12→20:30)
[2022-03-11] MEDS: CMCS: Rasagiline 1 mg TAB (NF) PO SCH (09:13)
[2022-03-11] MEDS ORDERED: Lorazepam PYXIS KEY PRN (13:29)
[2022-03-11] MEDS: LORazepam 2 mg VIAL 1 ml IV PUSH PRN ×2 (15:55→22:48)
[2022-03-12] MEDS: ZOSYN 3.375 GM Q8H per EXTENDED INFUSION IV SCH ×3 (05:37→22:11)
[2022-03-12 06:32] LABS: ABS Basophils 0.1 10^3/ul (0-0.2); ABS Lymphocytes 1.6 10^3/ul (1.0-4.8); ABS Monocytes 1.1 10^3/ul (0-0.8); ABS Neutrophils 11.2 10^3/ul (1.5-7.7); Eosinophil % 0.3 %; Hematocrit 40 % (42-52); Hemoglobin 13.1 g/dL (14.0-18.0); Lymphocyte % 11.5 %; Mean Corpuscular HGB Conc 33 g/dL (31-36); Mean Corpuscular Hemoglobin 29 pg (27-31); Mean Corpuscular Volume 88 fL (80-94); Mean Platelet Volume 8.2 fL (7.4-10.4); Platelet Count 326 10^3/uL (150-450); Red Cell Distribution Width 13 % (10-15)
[2022-03-12] MEDS: CMCS: Rasagiline 1 mg TAB (NF) PO SCH (09:54)
[2022-03-12] MEDS: Pantoprazole VIAL 40 MG VIAL IV SCH ×2 (09:54→22:12)
[2022-03-12] MEDS: D5LR 1000 ml BAG 1,000 ML IV SCH ×2 (11:52→22:03)
[2022-03-13] MEDS: ZOSYN 3.375 GM Q8H per EXTENDED INFUSION IV SCH ×3 (05:08→21:29)
[2022-03-13 06:26] LABS: ABS Lymphocytes 1.6 10^3/ul (1.0-4.8); ABS Monocytes 0.7 10^3/ul (0-0.8); ABS Neutrophils 8.6 10^3/ul (1.5-7.7); Eosinophil % 0.2 %; Hematocrit 33 % (42-52); Hemoglobin 11.2 g/dL (14.0-18.0); Lymphocyte % 14.2 %; Mean Corpuscular HGB Conc 34 g/dL (31-36); Mean Corpuscular Hemoglobin 30 pg (27-31); Mean Corpuscular Volume 87 fL (80-94); Nucleated Red Blood Cells % 0.1; Platelet Count 291 10^3/uL (150-450); Red Blood Count 3.75 10^6 /uL (4.18-5.48); Red Cell Distribution Width 13 % (10-15); White Blood Count 10.9 10^3/uL (3.5-10.8)
[2022-03-13 06:39] LABS: Calcium 8.3 mg/dL (8.6-10.3); Potassium 3.5 mmol/L (3.5-5.0); eGFR CKD-EPI 93.9 (>60)
[2022-03-13] MEDS: D5LR 1000 ml BAG 1,000 ML IV SCH (08:22)
[2022-03-13] MEDS: Pantoprazole VIAL 40 MG VIAL IV SCH ×2 (08:26→21:29)
[2022-03-13] MEDS: CMCS: Rasagiline 1 mg TAB (NF) PO SCH (08:30)
[2022-03-14] MEDS: ZOSYN 3.375 GM Q8H per EXTENDED INFUSION IV SCH (05:09)
[2022-03-14 06:27] LABS: ABS Eosinophils 0.1 10^3/ul (0-0.6); ABS Lymphocytes 1.7 10^3/ul (1.0-4.8); ABS Monocytes 0.8 10^3/ul (0-0.8); ABS Neutrophils 6.5 10^3/ul (1.5-7.7); Eosinophil % 0.7 %; Hematocrit 33 % (42-52); Hemoglobin 11.3 g/dL (14.0-18.0); Lymphocyte % 19.1 %; Mean Corpuscular HGB Conc 34 g/dL (31-36); Mean Corpuscular Hemoglobin 30 pg (27-31); Mean Corpuscular Volume 86 fL (80-94); Mean Platelet Volume 7.7 fL (7.4-10.4); Nucleated Red Blood Cells % 0.1; Platelet Count 281 10^3/uL (150-450); Red Cell Distribution Width 14 % (10-15); White Blood Count 9.1 10^3/uL (3.5-10.8)
[2022-03-14 06:42] LABS: Calcium 8.5 mg/dL (8.6-10.3); Magnesium 1.8 mg/dL (1.9-2.7); Potassium 3.7 mmol/L (3.5-5.0); eGFR CKD-EPI 90.1 (>60)
[2022-03-14] MEDS ORDERED: Magnesium Sulfate IV 1GM/100ML 1 GM/100 ML BAG IV ONE (07:09)
[2022-03-14] MEDS: CMCS: Rasagiline 1 mg TAB (NF) PO SCH (08:45)
[2022-03-14] MEDS: Pantoprazole VIAL 40 MG VIAL IV SCH (08:46)
[2022-03-14] MEDS ORDERED: Magnesium Hydroxide LIQ 30 ML UDC PO PRN (09:23)
[2022-03-14] MEDS ORDERED: Polyethylene Glycol 3350 17 GM PACKET PO PRN (09:23)
[2022-03-14] MEDS ORDERED: Senna TAB 8.6 mg TAB PO PRN (09:23)
[2022-03-14 11:04] VITALS: BP 134/76
== END 2022-03-14 11:12 | DRG 380 ==
LOC: EDHOLD 05:54 → ED 05:54 → SUATTDRO 10:48 → MEDTELE 13:45 → MED 03-13 00:27
PROVIDERS: ADMIT Internal Medicine; ATTEND Hospitalist